=== PATIENT | female | born 1935 | race Caucasian/White ===

== ENCOUNTER 2017-01-30 13:42 | Inpatient (IN) ==
--- NOTE | 2017-01-30 14:33 | PROVIDER DOCUMENTATION ---
HPI-Abdominal Pain/GI Problem - General Chief Complaint: UTI Symptoms Stated Complaint: ABD PAIN, "STRONG" URINE SMELL Time Seen by Provider: 01/30/17 14:03 Source: patient Allergies/Adverse Reactions: Patient Allergies Allergy/AdvReac Type Severity Reaction Status Date / Time aspirin Allergy Intermediate SWELLING Verified 11/01/16 17:04 meperidine HCl * Allergy Intermediate RASH Verified 11/01/16 17:04 [From Demerol] morphine Allergy Intermediate HIVES Verified 11/01/16 17:04 Penicillins Allergy Intermediate HIVES Verified 11/01/16 17:04 Sulfa (Sulfonamide Allergy Intermediate HIVES Verified 11/01/16 17:04 Antibiotics) Iodinated Contrast Media - Allergy Mild NAUSEA/VOMI Verified 11/01/16 17:04 Oral and TING nalbuphine HCl * Allergy Mild RASH Verified 11/01/16 17:04 [From Nubain] famotidine [From Pepcid] Allergy Unknown Unknown Verified 11/01/16 17:04 streptomycin [Streptomycin] Allergy Unknown Unknown Verified 11/01/16 17:04 Home Medications: Home Medication List Medication Instructions Recorded Confirmed Last Taken Type Bisacodyl [Dulcolax] 10 mg VA PRN PRN 01/22/14 11/01/16 Unknown History Docusate Sodium [Colace] 100 mg PO BID 01/22/14 11/01/16 11/01/16 07:00 History Pantoprazole [Protonix] 40 mg PO DAILY@0700 01/22/14 11/01/16 11/01/16 07:00 History ATORVAstatin [Lipitor] 80 mg PO HS #1 tablet 02/02/14 11/01/16 10/31/16 20:00 Rx Dimethicone/Oxybenzone Commerce 0 gm TOP PRN PRN #1 stick 02/02/14 11/01/16 Unknown Rx [Blistex Medicated Swift Lip [place]] Ondansetron HCl [Zofran] 4 mg PO Q4H PRN PRN #1 tablet 02/02/14 11/01/16 Unknown Rx Potassium Chloride E.r. [Klor-Con] 40 meq PO DAILY #1 tablet 02/02/14 11/01/16 11/01/16 07:00 Rx Ranolazine E.r. [Ranexa] 500 mg PO BID #1 tablet 02/02/14 11/01/16 11/01/16 07: 00 Rx Acetaminophen 500 mg PO PRN PRN 02/17/14 11/01/16 Unknown History Digoxin 0.125 mcg PO DAILY 03/23/14 11/01/16 11/01/16 07:00 History Melatonin/Pyridoxine HCl (B6) 1 each PO QHS 03/23/14 11/01/16 10/31/16 20:00 History [Melatonin 10 mg Tablet] Prasugrel HCl [Effient] 5 mg PO DAILY 03/23/14 11/01/16 11/01/16 07:00 History Digoxin [Lanoxin] 125 microgm PO DAILY #0 tablet 11/05/16 Unknown Rx Oxycodone I.r. 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 She has been treated with Macrobid twice, amoxicillin and levaquin, states she is still having pain in the rlq. Pain is stabbing, intermittent, not associated with BM. She has been eating and drinking well over the past 2 weeks. Denies fevers, chills or weight loss. She is incontinent, but denies dysuria. She has a healthcare economics manager that lives with her, that denies and decrease mentally from her baseline Abdominal Pain Onset Location: reports: RLQ Pain Radiation: reports: no radiation Quality of Pain: reports: aching Severity in ED: reports: mild Onset/Duration: reports: other (2 months) Timing: reports: still present Review of Systems - Adult - REVIEW OF SYSTEMS - ADULT Constitutional: reports: no symptoms reported. denies: chills, fever, fatique Eyes: reports: no symptoms reported. denies: decreased vision, blurred vision, double vision, eye pain Ears, Nose, Mouth & Throat: reports: no symptoms reported. denies: ear pain, nose pain, throat pain Cardiovascular: reports: no symptoms reported. denies: chest pain, palpitations Respiratory: reports: no symptoms reported. denies: cough, shortness of breath , wheezing Gastrointestinal: reports: see HPI, abdominal pain, constipation, nausea. denies: diarrhea, poor appetite, vomiting Genitourinary: reports: no symptoms reported. denies: dysuria, discharge, frequency, flank pain, incontinence Musculoskeletal: reports: no symptoms reported. denies: bone pain, back pain, muscle aches Integumentary: reports: no symptoms reported. denies: rash Neurological: reports: no symptoms reported. denies: headache/migraines Psychiatric: reports: no symptoms reported Endocrine: reports: no symptoms reported Hematologic/Lymphatic: reports: no symptoms reported Allergic/Immunologic: reports: no symptoms reported All Other Systems: Reviewed and Negative Past History - Adult - PAST MEDICAL HISTORY-ADULT Review of Records: reports: Old Records Reviewed, Nursing Assessment Review, Medications Reviewed, Social history reviewed & non-contributory. Major Childhood Illnesses: reports: denies history Cardiovascular: reports: CAD, HTN Respiratory: reports: COPD Gastrointestinal: reports: denies history Obstetrical/Gynecological: reports: denies history Genitourinary: reports: denies history Musculoskeletal: reports: denies history Neurological: reports: dementia Endocrine/Immune: reports: denies history Other Conditions: reports: denies history - PRIOR SURGERIES/PROCEDURES Surgical/Procedure History: reports: appendectomy, colonoscopy, , orthopedic (extremity) (right hip) - IMMUNIZATION STATUS Childhood Immunizations: See Nurse Assessment Flu Vaccine: See Nurse Assessment - FAMILY HISTORY Family History: reviewed, not pertinent - SOCIAL HISTORY Smoking: quit greater than 1 year Substance Use: none/never Alcohol Use Frequency: never Physical Exam-General - PHYSICAL EXAM-ADULT Initial Vital Signs Reviewed: Yes - CONSTITUTIONAL General Appearance: appears well, alert, no apparent distress, thin - EYES Eyes: PERRL/EOMI, pink conjunctivae - HEAD, EARS, NOSE, MOUTH & THROAT HENMT: normocephalic/atraumatic, moist mucous membranes - NECK Neck: non-tender, full range of motion, supple, normal inspection - RESPIRATORY Respiratory: chest non-tender, lungs clear, normal breath sounds, no pleuratic chest pain, no respiratory distress, no accessory muscle use. negative: respiratory distress, decreased breath sounds, accessory muscle use, crackles, rales, rhonchi, wheezing - CARDIOVASCULAR Cardiovascular: normal peripheral pulses, regular rate, rhythm, no edema, no gallop, no JVD, no murmur - GASTROINTESTINAL (ABDOMEN) Abdominal Exam: normal bowel sounds, soft, no organomegaly, no pulsatile mass, tenderness (rlq). negative: abdominal bruit, abnormal bowel sounds, distended, guarding, rigid, rebound - MUSCULOSKELETAL Extremity: normal range of motion Peripheral Pulses: radial (R): 2+, radial (L): 2+, dorsalis-pedis (R): 2+, dorsalis-pedis (L): 2+ - SKIN Integumentary: normal color, normal turgor, warm/dry, other (PVD) - NEUROLOGIC Neurologic: grossly normal, no motor/sensory deficits - PSYCHIATRIC Psych/Mental Status: normal mood/affect, normal thought content, normal thought process, oriented x 3 Progress - PLAN OF CARE/RESULTS Progress/Plan/Lab Results: Vital Signs Temp Pulse Resp BP Pulse Ox 01/30/17 13:45 97.8 F 108 H 18 115/61 92 L aspirin Allergy (Intermediate, Verified 11/01/16 17:04) SWELLING meperidine HCl * [From Demerol] Allergy (Intermediate, Verified 11/01/16 17:04) RASH morphine Allergy (Intermediate, Verified 11/01/16 17:04) HIVES Penicillins Allergy (Intermediate, Verified 11/01/16 17:04) HIVES Sulfa (Sulfonamide Antibiotics) Allergy (Intermediate, Verified 11/01/16 17:04) HIVES Iodinated Contrast Media - Oral and Allergy (Mild, Verified 11/01/16 17:04) NAUSEA/VOMITING nalbuphine HCl * [From Nubain] Allergy (Mild, Verified 11/01/16 17:04) RASH famotidine [From Pepcid] Allergy (Unknown, Verified 11/01/16 17:04) Unknown streptomycin [Streptomycin] Allergy (Unknown, Verified 11/01/16 17:04) Unknown Bisacodyl [Dulcolax] 10 mg VA PRN PRN 01/22/14 Docusate Sodium [Colace] 100 mg PO BID 01/22/14 Pantoprazole [Protonix] 40 mg PO DAILY@0700 01/22/14 ATORVAstatin [Lipitor] 80 mg PO HS #1 tablet 02/02/14 Dimethicone/Oxybenzone Commerce [Blistex Medicated [place]] 0 gm TOP PRN PRN #1 stick 02/02/14 Ondansetron HCl [Zofran] 4 mg PO Q4H PRN PRN #1 tablet 02/02/14 Potassium Chloride E.r. [Klor-Con] 40 meq PO DAILY #1 tablet 02/02/14 Ranolazine E.r. [Ranexa] 500 mg PO BID #1 tablet 02/02/14 Acetaminophen 500 mg PO PRN PRN 02/17/14 Digoxin 0.125 mcg PO DAILY 03/23/14 Melatonin/Pyridoxine HCl (B6) [Melatonin 10 mg Tablet] 1 each PO QHS 03/23/14 Prasugrel HCl [Effient] 5 mg PO DAILY 03/23/14 Digoxin [Lanoxin] 125 microgm PO DAILY #0 tablet 11/05/16 Oxycodone I.r. [Oxy Ir] 10 mg PO Q4-6H PRN PRN #20 capsule 11/05/16 Dietary Diet NPO Start SatJan 30 1421 Laboratory 01/30/17 01/30/17 01/30/17 15:25 15:25 14:05 WBC 6.69 RBC 3.79 L Hgb 10.8 L Hct 37.6 MCV 99.2 H MCH 28.5 MCHC 28.7 L RDW Std Deviation 16.4 H Plt Count 157 MPV 11.5 H Immature Gran % (Auto) 0.1 Neut % (Auto) 72.4 Lymph % (Auto) 16.9 L [place] % (Auto) 7.0 Eos % (Auto) 3.0 Baso % (Auto) 0.6 Immature Gran # (Auto) 0.01 Neut # (Auto) 4.84 Lymph # (Auto) 1.13 L [place] # (Auto) 0.47 Eos # (Auto) 0.20 Baso # (Auto) 0.04 Sodium 140 Potassium 3.9 Chloride 104 Carbon Dioxide 28 Anion Gap 9 BUN 16 Creatinine 0.9 Estimated GFR/1.73 m2 60 BUN/Creatinine Ratio 18 Glucose 120 H Calculated Osmolality 282 Calcium 8.6 L Total Bilirubin 0.60 AST 11 ALT 10 Alkaline Phosphatase 83 Total Protein 5.3 L Albumin 3.2 L Globulin 2.0 Albumin/Globulin Ratio 2.0 Amylase 9 L Lipase 12 L Urine Source CLEAN CATCH Urine Color JOSS Urine Clarity VERY CLOUDY A Urine pH 6.5 Ur Specific [place] 1.020 Urine Protein 2+(100 mg/dL) A Urine Ketones 1+(Small) A Urine Blood 2+ A Urine Nitrite NEGATIVE Urine Bilirubin 1+ A Urine Urobilinogen 4+(12 mg/dL) Urine Microscopic RBC 20-40 A Urine WBC 2+ A Urine Microscopic WBC TNTC A Ur Epithelial Cells >10 A Urine Bacteria 4+ Urine Glucose NEGATIVE Orders Category Date Time Status Saline Loc DIRECTED Care 01/30/17 14:21 Active NPO Diet 01/30/17 14:21 Active FLAT/UPRIGHT ABD/1 VIEW CHEST [RAD] Stat Exams 01/30/17 14:22 Completed AMYLASE [CHEM] Stat Lab 01/30/17 15:25 Completed CBC WITH ELECTRONIC DIFF [HEME] Stat Lab 01/30/17 15:25 Completed COMPREHENSIVE METABOLIC PANEL [CHEM] Stat Lab 01/30/17 15:25 Completed LIPASE [CHEM] Stat Lab 01/30/17 15:[address] W/POSS RFLX CULT [URINALYSIS] Stat Lab 01/30/17 14:05 Completed URINE CULTURE [RM] Routine Lab 01/30/17 16:12 Ordered 0.9% Sodium Chloride Inj [Ns] 1,000 ml Med 01/30/17 16:06 Active IV 999 mls/hr CefTRIAXONE 1 GM/NS [Rocephin 1 gm/Ns] 50 ml Med 01/30/17 16:06 Active IV NOW Ondansetron Odt [Zofran Odt] Med 01/30/17 14:54 Discontinued 4 mg .ROUTE .STK-MED ONE Ondansetron Odt [Zofran Odt] Med 01/30/17 14:53 Discontinued 4 mg PO NOW ONE - XRAY 1 XRAY Study: Abdomen Impression: Normal (NAD per radiology) - CONSULTS/PCP/HOSPITALIST Notification #1 *Consult/PCP/Hospitalist*: Dr. Tsai, hospitalist Time Discussed: 17:48 Reason/Comments: failed outpatient therapy of UTI Consult Disposition: Admit Departure - Departure Time of Disposition Order: 16:19 DIAGNOSIS: Acute UTI Disposition: ADMITTED INPATIENT 09 Certified Medical Emergency: Emergent Condition: Stable Referrals: Ritu Henry [Primary Care Provider] - Instructions: Urinary Tract Infection, [id number], Cephalexin tablets or capsules Attestation - Physician/ VIK Attestation Patient care was provided by Advanced Practice Provider:: Yes Advanced Practice Provider:: Claudia Salazar Advanced Practice Provider documentation review:: The Mid-level provider documentation, treatment plan and medical decision making was reviewed by the physician who agrees with all treatment and medical decision making by the MLP.
[2017-01-30] MEDS ORDERED: ZOFRAN ODT PO ONE (14:53)
[2017-01-30] MEDS ORDERED: ZOFRAN ODT ONE (14:54)
--- NOTE | 2017-01-30 15:23 | Diag Imaging Result Document ---
PROCEDURE NAME: FLAT/UPRIGHT ABD/1 VIEW CHEST - 01/30/2017 FLAT AND UPRIGHT AND CHEST, THREE VIEWS: COMPARISON: The chest is compared to 11/01/2016. FINDINGS: The lungs are well expanded. The heart is mildly prominent. There are several old rib fractures. No free air beneath the diaphragm. Mild scoliosis with degenerative spine changes. No bowel obstruction. No organomegaly. No abnormal abdominal calcifications. There has been prior orthopaedic replacement of the right hip. Sutures are found in the pelvis. IMPRESSION: No acute abnormality.
[2017-01-30 15:36] LABS: MANUAL DIFF NEEDED? NO
[2017-01-30 15:56] LABS: BASO% 0.6 % (0.0-0.8); HEMATOCRIT 37.6 % (37.0-47.0); HEMOGLOBIN 10.8 g/dL (12.0-16.0); IMM GRAN# 0.01 X1000 (0.0-0.04); IMM GRAN% 0.1 % (0.0-0.5); LYMPH# 1.13 X1000 (1.2-3.4); LYMPH% 16.9 % (20.5-51.1); MCH 28.5 PG (27-31); MCHC 28.7 g/dL (33-37); MCV 99.2 FL (81-99); MONO# 0.47 X1000 (0.11-0.59); MPV 11.5 FL (7.4-10.4); NEUT% 72.4 % (42.2-75.2); PLT 157 X1000 (130-400); RBC 3.79 XMIL (4.2-5.4)
[2017-01-30 15:57] LABS: URINE SOURCE CLEAN CATCH
[2017-01-30 16:00] LABS: BILIRUBIN URINE 1+ (NEGATIVE); BLOOD URINE 2+ (NEGATIVE); CLARITY VERY CLOUDY (CLEAR); COLOR AMBER; GLUCOSE URINE NEGATIVE (NEGATIVE); LEUKOCYTES URINE 2+ (NEGATIVE); NITRITE URINE NEGATIVE (NEGATIVE); PH URINE 6.5; PROTEIN URINE 2+(100 mg/dL) mg/dL (NEGATIVE); UROBILINOGEN URINE 4+(12 mg/dL)
[2017-01-30] MEDS ORDERED: NS 1,000 ML IV ONE (16:06)
[2017-01-30] MEDS ORDERED: ROCEPHIN 1 GM/NS 50 ML IV ONE (16:06)
[2017-01-30 16:09] LABS: ALBUMIN 3.2 g/dL (3.5-5.0); CALCIUM 8.6 mg/dL (8.8-10.2); POTASSIUM 3.9 mmol/L (3.5-5.1); TOTAL BILIRUBIN 0.6 mg/dL (0.20-1.00); TOTAL PROTEIN 5.3 g/dL (6.3-8.3)
[2017-01-30 16:12] LABS: URINE CULTURE PL NEEDED? YES; URINE EPITHELIAL CELLS >10 /HPF (<10); URINE RBC 20-40 /HPF (<10); URINE WBC TNTC /HPF (<10)
[2017-01-30] MEDS ORDERED: ZOFRAN IV PRN (20:20)
[2017-01-30] MEDS ORDERED: TYLENOL PO PRN (20:20)
[2017-01-30] MEDS: LIPITOR PO SCH (21:48)
[2017-01-30] MEDS: NS 1,000 ML IV SCH (22:19)
[2017-01-31] MEDS: PROTONIX PO SCH (06:16)
[2017-01-31 06:28] LABS: HEMATOCRIT 37.6 % (37.0-47.0); HEMOGLOBIN 10.6 g/dL (12.0-16.0); MCH 28.2 PG (27-31); MCHC 28.2 g/dL (33-37); MPV 12.1 FL (7.4-10.4); RBC 3.76 XMIL (4.2-5.4)
[2017-01-31 06:37] LABS: ALBUMIN 2.9 g/dL (3.5-5.0); CALCIUM 8.8 mg/dL (8.8-10.2); MAGNESIUM 2.5 mg/dL (1.5-2.7); POTASSIUM 5.3 mmol/L (3.5-5.1); TOTAL BILIRUBIN 0.3 mg/dL (0.20-1.00); TOTAL PROTEIN 4.8 g/dL (6.3-8.3)
[2017-01-31] MEDS: PLAVIX PO SCH (08:27)
[2017-01-31] MEDS: IMDUR PO SCH (08:27)
[2017-01-31] MEDS: TAPAZOLE PO SCH (08:27)
[2017-01-31] MEDS: BYSTOLIC PO SCH (08:28)
--- NOTE | 2017-01-31 08:39 | PROGRESS NOTE ---
DATE: 01/31/2017 SUBJECTIVE: The patient without any new complaints. She is still not drinking well. Still tired and fatigued. OBJECTIVE: Vital Signs: Reviewed. Temperature 97.8, pulse 84, respiratory rate 10, BP 137/51. General: Patient well developed, well nourished. She is currently in no real respiratory distress. She is awake, alert, oriented. Neck: Supple. CV: Regular rate. Chest: Relatively clear. Abdomen: Soft, nondistended. Extremities: Moves all extremities. Skin: Warm and dry. No rashes. ASSESSMENT: 1. Mild volume depletion. 2. Hyperkalemia. 3. Hypernatremia. 4. Moderate protein calorie malnutrition. 5. Recalcitrant urinary tract infection. The patient has had multiple urinary infections in the past. They have been difficult to treat. However, we do not have a culture here as the last one in October was no growth. PLAN: We will continue patient in the hospital. Continue Rocephin. Continue IV fluids. We will put in a PICC line today. Will continue her home medications. Further orders as needed.
[2017-01-31] MEDS ORDERED: NS 500 ML ONE (10:53)
[2017-01-31] MEDS: NORCO-7.5 PO PRN (10:54)
[2017-01-31 11:28] LABS: PROTIME 13.5 Seconds (12.1-15.5)
[2017-01-31] MEDS: NS 1,000 ML IV SCH (13:30)
--- NOTE | 2017-01-31 14:52 | Diag Imaging Result Document ---
PROCEDURE NAME: US RENAL 2 (RETROPER) COMPLETE - 01/31/2017 RENAL ULTRASOUND: COMPARISON: 01/23/2014, 01/22/2014. FINDINGS: There is incidental note of gallbladder wall thickening which is identical to the prior scan from 2013. There is some cortical atrophy bilaterally with renal cortical thinning. No mass or obstruction. Background renal echotexture is normal. The right kidney measures 8.6 x 4.9 x 3.3 cm. The left kidney measures 9.8 x 3.5 x 3.9 cm. Cortex measures 6 mm bilaterally. The urinary bladder is grossly normal. IMPRESSION: 1. Renal cortical atrophy bilaterally but no obstruction. 2. Chronic gallbladder wall thickening of uncertain significance.
--- NOTE | 2017-01-31 14:59 | HISTORY AND PHYSICAL ---
PRIMARY CARE PHYSICIAN: Dr. Ritu Henry CHIEF COMPLAINT: Abdominal pain in the right lower quadrant. HISTORY OF PRESENTING ILLNESS: This is a 81-year-old female who presented to [facility] ER with complaints of right lower quadrant abdominal pain. States she has been having recurrent UTIs over the past month had been treated with Macrobid twice, amoxicillin and Levaquin. Continued to still have pain in her right lower quadrant. She described the pain as stabbing and intermittent, it was not associated with a bowel movement. States she had been eating and drinking over the past 2 weeks and having incontinent episodes. She denied any dysuria. Workup in the ER showed a urinalysis to have negative nitrites, 2+ white blood cells, 4+ bacteria. So, she was admitted for further evaluation and treatment. PAST MEDICAL HISTORY: COPD, dementia and hypertension. PAST SURGICAL HISTORY: Appendectomy, a breast biopsy, cholecystectomy, cataract removal, hysterectomy, a hip replacement and a bilateral tubal ligation. FAMILY HISTORY: Her dad had cancer. SOCIAL HISTORY: She lives with family. Denies any tobacco, alcohol, or illicit drug use. She was a former smoker but quit approximately 3 years ago. ALLERGIES: Aspirin, Demerol, morphine penicillin, sulfa, Nubain, iodinated contrast media, Pepcid and streptomycin. HOME MEDICATIONS: 1. Klor-Con 40 mEq p.o. daily. 2. Lipitor 40 mg p.o. at bedtime. 3. Plavix 75 mg p.o. daily. 4. Benadryl 25 mg p.o. q.4-6 hours p.r.n. 5. Colace 100 mg p.o. q.6 hours p.r.n. 6. Vitamin D2 07810 units. 7. [place] 7.5, 1-2 p.o. q.6 hours p.r.n. pain. 8. Imdur 60 mg p.o. daily. 9. Methimazole 5 mg p.o. daily. 10. Bystolic 5 mg p.o. daily. 11. OxyIR 10 mg p.o. q.4-6 hours p.r.n. 12. Protonix 40 mg p.o. daily. LABORATORY DATA: White blood cell count 6.69, hemoglobin of 10.8, hematocrit 37.6, platelets 157,000. PT and INR of 13.5 and 1.0. Sodium of 140, potassium 3.9, chloride 104, CO2 28, BUN of 16, creatinine of 0.9, glucose of 120, amylase of 9, lipase of 12. Urinalysis showed negative nitrites, 2+ white blood cells, and 4+ bacteria. Urine culture is pending. Abdominal x-ray showed no acute abnormality. REVIEW OF SYSTEMS: She denied any fever, chills, blurred vision, dizziness, chest pain, coughing, shortness of breath. She was positive for nausea. Right lower quadrant abdominal pain that is intermittent, incontinence. PHYSICAL EXAMINATION: VITAL SIGNS: On arrival showed a temperature of 97.8 degrees, pulse 108, respirations 18, blood pressure 115/61, saturating 92% on room air. GENERAL: This is a 81-year-old female lying in the bed. HEENT: Normocephalic and atraumatic. Pupils are equal, round, reactive to light. Extraocular movements are intact. The oropharynx and nares are clear. NECK: Supple. LUNGS: Diminished breath sounds in bases with crackles. Equal lung expansion and chest wall movement. HEART: With regular rate and rhythm. No murmurs, rubs, or gallops. ABDOMEN: Soft, nontender, nondistended. Bowel sounds are present x4 quadrants. EXTREMITIES: There is no clubbing, cyanosis, or edema. NEUROLOGICAL: The cranial nerves 2-12 are grossly intact. ASSESSMENT: 1. Urinary tract infection recurrent with failed outpatient treatment. 2. Mild protein calorie malnutrition. 3. Hypertension, history of. PLAN: She is being admitted to the medical unit at [facility]. Placed on telemetry. Regular diet. We will obtain a PICC consult. We are having difficulty obtaining a peripheral line. Urine culture is pending. We will obtain an ultrasound, renal today. Once IV is established, we will place her on normal saline at 75 mL an hour. Continue her Rocephin at 1 gram IV q.24, and continue her home medications as previously identified. We will recheck a CBC and BMP in a.m. Dictated by ARABELLA Torres for Dick Tsai MD
[2017-01-31] MEDS: ROCEPHIN 1 GM/NS 50 ML IV SCH (15:39)
[2017-01-31] MEDS: LIPITOR PO SCH (20:12)
[2017-02-01] MEDS: NS 1,000 ML IV SCH ×2 (00:23→13:22)
[2017-02-01] MEDS: NORCO-7.5 PO PRN ×2 (03:42→11:18)
[2017-02-01] MEDS: PROTONIX PO SCH (06:01)
[2017-02-01] MEDS: OXY IR PO PRN (06:01)
--- NOTE | 2017-02-01 08:29 | PROGRESS NOTE ---
DATE: 02/01/2017 SUBJECTIVE: Patient without new complaints. States she is eating and drinking okay. OBJECTIVE/PHYSICAL EXAMINATION: Vital signs reviewed. Temp 97, pulse of 96, respirations 16, BP 126/89, sat 99% on room air. General: The patient is a well-developed elderly female who is currently in no real respiratory distress. She is awake, alert. Neck: Supple. CV: Regular rate. Chest: Relatively clear. Abdomen: Soft. Extremities: Moves all extremities. LABS: No new labs this a.m. Currently pending. Urine culture growing gram-negative rods. ASSESSMENT: 1. Urinary tract infection with gram-negative rods. Micro still pending. 2. Anemia of chronic disease, stable. 3. Hypernatremia. 4. Hyperkalemia. Will recheck and follow. 5. Moderate protein calorie malnutrition. PLAN: The patient, unfortunately, was unable to get a PICC line yesterday. Will recheck her labs this a.m. She they be normal, then she may not need a PICC line. Will continue Rocephin and continue to follow.
[2017-02-01 08:49] LABS: HEMATOCRIT 37.8 % (37.0-47.0); HEMOGLOBIN 10.8 g/dL (12.0-16.0); MCH 29.3 PG (27-31); MCHC 28.6 g/dL (33-37); MCV 102.4 FL (81-99); MPV 11.8 FL (7.4-10.4); RBC 3.69 XMIL (4.2-5.4)
[2017-02-01] MEDS ORDERED: KLOR-CON PO SCH (09:00)
[2017-02-01] MEDS ORDERED: VITAMIN D PO SCH (09:00)
[2017-02-01 09:10] LABS: AGAP 8; ALBUMIN 2.6 g/dL (3.5-5.0); ALKALINE PHOSPHATASE 70 U/L (32-104); BUN 12 mg/dL (8-22); CHLORIDE 110 mmol/L (98-107); COSMO 281; GOT 8 U/L (10-30); GPT 8 U/L (10-36); SODIUM 141 mmol/L (136-145); TCO2 23 mmol/L (25-35); TOTAL PROTEIN 4.6 g/dL (6.3-8.3)
[2017-02-01] MEDS: BYSTOLIC PO SCH (09:16)
[2017-02-01] MEDS: PLAVIX PO SCH (09:16)
[2017-02-01] MEDS: TAPAZOLE PO SCH (09:16)
[2017-02-01] MEDS: IMDUR PO SCH (09:17)
[2017-02-01] MEDS: BENADRYL PO PRN (11:19)
[2017-02-01] MEDS: ROCEPHIN 1 GM/NS 50 ML IV SCH (15:12)
[2017-02-01] MEDS: LIPITOR PO SCH (20:55)
[2017-02-02] MEDS: NS 1,000 ML IV SCH ×3 (03:50→22:49)
[2017-02-02] MEDS: PROTONIX PO SCH (06:30)
[2017-02-02] MEDS: BENADRYL PO PRN ×2 (08:08→23:41)
[2017-02-02] MEDS: BYSTOLIC PO SCH (08:08)
[2017-02-02] MEDS: TAPAZOLE PO SCH (08:09)
[2017-02-02] MEDS: IMDUR PO SCH (08:09)
[2017-02-02] MEDS: PLAVIX PO SCH (08:09)
--- NOTE | 2017-02-02 09:37 | EKG Report ---
Test Performed on : 02/02/2017 08:14:39 AM Test Reason : Tachycardia Blood Pressure : / mmHG Vent. Rate : 132 BPM Atrial Rate : 170 BPM P-R Int : 000 ms QRS Dur : 080 ms QT Int : 288 ms P-R-T Axes : 000 000 066 degrees QTc Int : 426 ms Atrial fibrillation. with rapid ventricular response. Abnormal ECG When compared with ECG of 03-NOV-2016 10:21, Vent. rate has increased BY 64 BPM Nonspecific T wave abnormality now evident in Lateral leads Confirmed by Kenneth King MD ([id number]) on 02/12/2017 1:29:24 AM
[2017-02-02] MEDS ORDERED: CARDIZEM 100 MG/NS 100 ML IV SCH (10:20)
[2017-02-02] MEDS ORDERED: GENTAMICIN IV PER PHARMACY MISC SCH (12:00)
[2017-02-02] MEDS ORDERED: GENTAMICIN 300 MG in NS 150 ML IV SCH (13:00)
[2017-02-02] MEDS: OXY IR PO PRN ×2 (13:06→19:55)
--- NOTE | 2017-02-02 14:33 | PROGRESS NOTE ---
DATE: 02/02/2017 SUBJECTIVE: The patient is currently awake and alert. She states that she is feeling a little bit better. She did have some issues yesterday and this morning with palpitations. Otherwise notes that she is feeling a little bit better. She denies any current, palpitations. States otherwise she feels fine. OBJECTIVE: Vital Signs: Temperature 97 degrees, pulse currently 89, but has been as high as 130s. BP 118/95. Saturations 94% on room air. General: Patient is well developed, well nourished. She is currently in no real respiratory distress. She is awake, alert. Neck: Supple. Cardiovascular: Irregular rhythm, currently rate controlled. Abdomen: Soft. Extremities: Moves extremities. Chest: Relatively clear. ASSESSMENT: 1. Urinary tract infection with failed outpatient management. We will add imipenem. We will wait for her cultures. She unfortunately is allergic to sulfa and penicillin. She currently has an Escherichia coli that is sensitive to imipenem and Bactrim. We will discuss with pharmacy, likely add gentamicin. 2. Atrial fibrillation. She apparently went into atrial fibrillation with rapid ventricular response earlier this morning. We moved her back to the ICU. She has not received IV Cardizem yet. Her heart rate is slowing down. 3. Hypertension. 4. Adult failure to thrive. Continue to follow.
[2017-02-02] MEDS: ROCEPHIN 1 GM/NS 50 ML IV SCH (17:42)
[2017-02-02] MEDS: LIPITOR PO SCH (20:57)
[2017-02-03] MEDS: OXY IR PO PRN ×2 (00:10→16:26)
[2017-02-03] MEDS: PROTONIX PO SCH (06:27)
[2017-02-03] MEDS: PLAVIX PO SCH (08:41)
[2017-02-03] MEDS: BYSTOLIC PO SCH (08:41)
[2017-02-03] MEDS: IMDUR PO SCH (08:41)
[2017-02-03] MEDS: TAPAZOLE PO SCH (09:14)
[2017-02-03] MEDS ORDERED: ROCEPHIN 1 GM/NS 50 ML MISC SCH (11:00)
--- NOTE | 2017-02-03 11:12 | PROGRESS NOTE ---
DATE: 02/03/2017 SUBJECTIVE: Patient notes that she is feeling a little bit better. She is not having any chest pains or palpitations presently. PHYSICAL EXAMINATION: Vital Signs: Reviewed and stable. General: She is awake, alert. Neck: Supple. CV: Regular rate. Chest: Relatively clear. Abdomen: Soft. Extremities: Moves all extremities. Neurologic: No changes. Vitals: Temperature 97, pulse 84, respiratory rate 10, BP 170/64. ASSESSMENT: 1. Atrial fibrillation. Currently, she is rate controlled and no longer with rapid rate. She has not needed Cardizem overnight. 2. Urinary tract infection. She has an Escherichia coli that is resistant to Levaquin. Sensitive to Bactrim, Macrodantin, and imipenem. Unfortunately, she is allergic to penicillin, streptomycin, and Bactrim. Her intravenous has infiltrated and we are having difficulty restarting it. At this point, we will try a Macrobid to see if this will control her urinary tract infection symptoms. Otherwise, we will need a peripherally inserted central catheter line in the morning. 3. Hypertension, stable. 4. Anemia of chronic disease, stable. 5. Hyperkalemia, resolved. 6. Hypernatremia, resolved. 7. Moderate protein calorie malnutrition.
[2017-02-03] MEDS: MACRODANTIN PO SCH ×2 (11:19→20:10)
[2017-02-03] MEDS: NORCO-7.5 PO PRN ×2 (14:37→20:09)
[2017-02-03] MEDS: ROCEPHIN IM SCH (16:22)
[2017-02-03] MEDS: XYLOCAINE-MPF 1% INJ SCH (16:22)
[2017-02-03] MEDS: LIPITOR PO SCH (20:10)
[2017-02-04] MEDS ORDERED: GENTAMICIN 300 MG in NS 150 ML IV SCH (01:00)
[2017-02-04] MEDS: NORCO-7.5 PO PRN ×2 (05:46→20:45)
[2017-02-04] MEDS: PROTONIX PO SCH ×2 (05:46→06:00)
--- NOTE | 2017-02-04 08:17 | PROGRESS NOTE ---
DATE: 02/04/2017 SUBJECTIVE: The patient notes she is feeling a little bit better this morning. Denies any fevers or chills. Denies any other chest pain or palpitations. PHYSICAL EXAMINATION: Vital Signs: Temperature 97, pulse 91, respiratory rate 18, BP 115/64. General: Patient is well developed, well nourished. She is currently in no respiratory distress. She is an awake, alert, elderly female. Neck: Supple. CV: Regular rate. Chest: Relatively clear. Abdomen: Soft. Extremities: Moves all extremities. Neurologic: No changes. LABS: Pending this morning. ASSESSMENT: 1. Urinary tract infection. The patient has an Escherichia coli urinary tract infection that is resistant to Levaquin. It is sensitive to Bactrim and imipenem. However, she has high sensitivities to sulfa, penicillin, and streptomycin. Therefore, she was changed over to oral nitrofurantoin. We will continue Rocephin for now, although unsure if has sensitivity as this was not run. 2. Atrial fibrillation with rapid ventricular response, currently back to rate control. 3. Mild protein calorie malnutrition. 4. Hypertension. 5. Hyperkalemia. 6. Hypernatremia, resolved. PLAN: We will continue nitrofurantoin and Bactrim for now. We will continue to encourage p.o. for her moderate protein calorie malnutrition. We will continue physical therapy. Hopefully home in the next 1-2 days.
[2017-02-04] MEDS: MACRODANTIN PO SCH ×2 (09:13→20:08)
[2017-02-04] MEDS: BYSTOLIC PO SCH (09:13)
[2017-02-04] MEDS: PLAVIX PO SCH (09:13)
[2017-02-04] MEDS: IMDUR PO SCH (09:13)
[2017-02-04] MEDS: TAPAZOLE PO SCH (09:14)
[2017-02-04 10:44] LABS: HEMATOCRIT 34.8 % (37.0-47.0); HEMOGLOBIN 10.1 g/dL (12.0-16.0); MCH 29.4 PG (27-31); MCV 101.5 FL (81-99); MPV 12.2 FL (7.4-10.4); RBC 3.43 XMIL (4.2-5.4)
[2017-02-04 10:48] LABS: INR 1.1 (0.86-1.15); PROTIME 14.5 Seconds (12.1-15.5)
[2017-02-04 10:58] LABS: AGAP 7; ALBUMIN 2.5 g/dL (3.5-5.0); ALKALINE PHOSPHATASE 73 U/L (32-104); BUN 13 mg/dL (8-22); CALCIUM 8.8 mg/dL (8.8-10.2); CHLORIDE 105 mmol/L (98-107); COSMO 278; GOT 11 U/L (10-30); GPT 8 U/L (10-36); MAGNESIUM 1.9 mg/dL (1.5-2.7); POTASSIUM 4.3 mmol/L (3.5-5.1); SODIUM 139 mmol/L (136-145); TCO2 28 mmol/L (25-35); TOTAL PROTEIN 4.9 g/dL (6.3-8.3)
[2017-02-04] MEDS: XYLOCAINE-MPF 1% INJ SCH (15:41)
[2017-02-04] MEDS: ROCEPHIN IM SCH (15:41)
[2017-02-04] MEDS: LIPITOR PO SCH (20:08)
[2017-02-04] MEDS: COLACE PO PRN (20:46)
[2017-02-05] MEDS ORDERED: CALMOSEPTINE OINTMENT TOP PRN (01:12)
[2017-02-05] MEDS: NORCO-7.5 PO PRN ×2 (03:20→10:03)
[2017-02-05] MEDS: COLACE PO PRN (03:20)
[2017-02-05] MEDS: PROTONIX PO SCH (06:49)
[2017-02-05] MEDS: BYSTOLIC PO SCH (08:25)
[2017-02-05] MEDS: PLAVIX PO SCH (08:25)
[2017-02-05] MEDS: MACRODANTIN PO SCH (08:25)
[2017-02-05] MEDS: TAPAZOLE PO SCH (08:25)
[2017-02-05] MEDS: IMDUR PO SCH (08:25)
[2017-02-05 11:36] VITALS: BP 117/76
--- NOTE | 2017-02-16 14:19 | DISCHARGE SUMMARY ---
ADMISSION DATE: 01/30/2017 DISCHARGE DATE: 02/05/2017 DISCHARGE DIAGNOSIS: 1. Urinary tract infection, Escherichia coli, resistant to Levaquin but sensitive to Bactrim. 2. Atrial fibrillation with rapid ventricular response. Rate controlled currently. 3. Mild protein calorie malnutrition. 4. Hypertension. 5. Hypokalemia. 6. Hypernatremia, resolved. CONSULTATIONS: None. PROCEDURES: None. BRIEF HOSPITAL COURSE: Ms Orlando is a 81-year-old female who was admitted as noted on the HPI, treated in usual fashion. She was noted to have initially atrial fibrillation with RVR but this easily resolved. She was converted over to p.o. medications without any difficulty. Unfortunately, her hospital course was prolonged secondary to her chronic dementia. She was placed on antibiotics. Her UTI that grew out E. coli that was resistant to Levaquin and therefore she was switched over to Bactrim, which she tolerated very well. On discharge she was awake, alert. She was in no distress. She will be discharged home. She will follow up outpatient with primary care of her choice in 1-2 weeks. She will continue home health at home. No other changes made in her home medications. TIME SPENT: 35 minutes was spent in discharge planning and instructions. cc: Dick Tsai MD
== END 2017-02-05 15:00 | disposition home health service (06) ==
LOC: P.ED 13:42 → P.MEDSURG 18:05 → P.ICU 02-02 10:16 → P.MEDSURG 02-03 12:27
PROVIDERS: ATTEND Family Medicine

== ENCOUNTER 2017-02-17 15:20 | Inpatient (IN) ==
[2017-02-17] MEDS ORDERED: CARDIZEM IV ONE (15:59)
[2017-02-17 16:38] LABS: MANUAL DIFF NEEDED? NO
[2017-02-17 16:41] LABS: BASO% 0.1 % (0.0-0.8); EOS# 0.06 X1000 (0.0-0.7); EOS% 0.7 % (0.0-10.0); HEMATOCRIT 44.7 % (37.0-47.0); HEMOGLOBIN 13.2 g/dL (12.0-16.0); IMM GRAN# 0.03 X1000 (0.0-0.04); IMM GRAN% 0.4 % (0.0-0.5); LYMPH% 11.9 % (20.5-51.1); MCH 29.8 PG (27-31); MCHC 29.5 g/dL (33-37); MCV 100.9 FL (81-99); MONO# 0.67 X1000 (0.11-0.59); MONO% 7.9 % (1.7-9.3); MPV 11.9 FL (7.4-10.4); PLT 211 X1000 (130-400); RBC 4.43 XMIL (4.2-5.4)
[2017-02-17 17:01] LABS: ALBUMIN 3.2 g/dL (3.5-5.0); CALCIUM 9.5 mg/dL (8.8-10.2); POTASSIUM 4.2 mmol/L (3.5-5.1); TOTAL BILIRUBIN 0.56 mg/dL (0.20-1.00)
--- NOTE | 2017-02-17 17:13 | Diag Imaging Result Document ---
PROCEDURE NAME: CHEST-2 VIEWS - 02/17/2017 TWO-VIEWS OF THE CHEST: FINDINGS: There is blunting of the costophrenic angles posteriorly bilaterally and there is opacity posteriorly in both lower lobes. This was not the case on 01/30/2017. IMPRESSION: Bilateral pleural effusions and lower lobe pneumonia versus pulmonary edema.
[2017-02-17] MEDS ORDERED: ROCEPHIN 1 GM/NS 1 GM/50 ML IVPB IV ONE (17:39)
--- NOTE | 2017-02-17 17:40 | PROVIDER DOCUMENTATION ---
This chart was entered by Gita Hester Scribe, acting as scribe for Sky Norris MD. HPI-General Adult - General Chief Complaint: Weakness Stated Complaint: GENERALIZED WEAKNESS Time Seen by Provider: 02/17/17 15:38 Source: patient Allergies/Adverse Reactions: Patient Allergies Allergy/AdvReac Type Severity Reaction Status Date / Time aspirin Allergy Intermediate SWELLING Verified 11/01/16 17:04 meperidine HCl * Allergy Intermediate RASH Verified 11/01/16 17:04 [From Demerol] morphine Allergy Intermediate HIVES Verified 11/01/16 17:04 Penicillins Allergy Intermediate HIVES Verified 11/01/16 17:04 Sulfa (Sulfonamide Allergy Intermediate HIVES Verified 11/01/16 17:04 Antibiotics) Iodinated Contrast Media - Allergy Mild NAUSEA/VOMI Verified 11/01/16 17:04 Oral and TING nalbuphine HCl * Allergy Mild RASH Verified 11/01/16 17:04 [From Nubain] famotidine [From Pepcid] Allergy Unknown Unknown Verified 11/01/16 17:04 streptomycin [Streptomycin] Allergy Unknown Unknown Verified 11/01/16 17:04 Home Medications: Home Medication List Medication Instructions Recorded Confirmed Last Taken Type Pantoprazole [Protonix] 40 mg PO DAILY@0700 01/22/14 01/30/17 11/01/16 07:00 History Potassium Chloride E.r. [Klor-Con] 40 meq PO DAILY #1 tablet 02/02/14 01/30/17 11/01/16 07:00 Rx Acetaminophen 500 mg PO PRN PRN 02/17/14 01/30/17 Unknown History Oxycodone I.r. [Oxy Ir] 10 mg PO Q4-6H PRN PRN #20 capsule 11/05/16 01/30/17 Unknown Rx ATORVAstatin [Lipitor] 40 mg PO HS 01/30/17 01/30/17 Unknown History Clopidogrel Bisulfate [Plavix] 75 mg PO DAILY 01/30/17 01/30/17 Unknown History Cranberry Fruit Concentrate [Azo 2 cap PO DAILY 01/30/17 01/30/17 Unknown History Cranberry] Diphenhydramine HCl [Benadryl 25 mg PO Q4-6H PRN PRN 01/30/17 01/30/17 Unknown History Allergy] Docusate Sodium [Monique' 1 cap PO Q6H PRN PRN 01/30/17 01/30/17 Unknown History Laxative] Ergocalciferol (Vitamin D2) 1 cap PO ONCE 01/30/17 01/30/17 Unknown History [Vitamin D] Hydrocodone/Acetaminophen [[place]send 1 - 2 tab PO Q6H PRN PRN 01/30/17 01/30/17 Unknown History 7.5-325 Tablet] Isosorbide Mononitrate E.r. [Imdur] 60 mg PO DAILY 01/30/17 01/30/17 Unknown History Methimazole 5 mg PO DAILY 01/30/17 01/30/17 Unknown History Nebivolol [Bystolic] 5 mg PO DAILY 01/30/17 01/30/17 Unknown History Dimethicone/Oxybenzone [place] 1 gm TOP PRN PRN 02/01/17 02/01/17 Unknown History [Blistex Medicated Swift [place]] Nitrofurantoin Macrocrystal 100 mg PO Q12HR #40 capsule 02/05/17 Unknown Rx [Macrodantin] - History of Present Illness -Gen Adult Nature of Presenting Problems: 81 yof presents with complaints of weakness.Family states pt had broken hip/ femur nonsurgical repair about 2 months ago. Pt was in rehab for 3 weeks and returned home. Since discharge from rehab pt has frequent UTI's. Pt has had more increased weakness with a cough and family states her lungs sounded bad. She has mild dementia but no increased AMS. Noted increased HR in the ER. Location of Pain/Injury: reports: generalized Pain Radiation: reports: no radiation Quality of Pain: reports: aching Severity: reports: mild Onset/Duration: reports: this morning Timing: reports: still present Context/Activities at Onset: reports: none Modifying Factors: improves with: nothing Associated Symptoms: reports: cough, weakness Similar Symptoms Previously?: No Recently seen or treated by another doctor?: No Review of Systems - Adult - REVIEW OF SYSTEMS - ADULT Constitutional: reports: susy. denies: chills, fever Eyes: reports: no symptoms reported Ears, Nose, Mouth & Throat: reports: no symptoms reported Cardiovascular: reports: irregular heart rate (increased). denies: chest pain, palpitations Respiratory: reports: cough, wheezing. denies: shortness of breath Gastrointestinal: reports: no symptoms reported Genitourinary: reports: no symptoms reported Musculoskeletal: reports: muscle weakness, other (hip). denies: back pain Integumentary: reports: no symptoms reported Neurological: reports: no symptoms reported Psychiatric: reports: no symptoms reported Endocrine: reports: no symptoms reported Hematologic/Lymphatic: reports: no symptoms reported Allergic/Immunologic: reports: no symptoms reported All Other Systems: Reviewed and Negative Past History - Adult - PAST MEDICAL HISTORY-ADULT Review of Records: reports: Old Records Reviewed, Nursing Assessment Review, Medications Reviewed Cardiovascular: reports: A-Fib, CAD, CHF, HTN Respiratory: reports: COPD Musculoskeletal: reports: orthopedic injury Neurological: reports: dementia Other Conditions: reports: cataract/glaucoma - PRIOR SURGERIES/PROCEDURES Surgical/Procedure History: reports: appendectomy, colonoscopy, cholecystectomy , cardiac stent, hysterectomy, BTL, , bowel surgery (partial colectony) , orthopedic (extremity) (bilateral hip), joint replacement (right hip), breast (biopsy), other (cataract) - IMMUNIZATION STATUS Childhood Immunizations: See Nurse Assessment Flu Vaccine: See Nurse Assessment - SOCIAL HISTORY Smoking: quit less than 1 year Living Situation: family Physical Exam-General - PHYSICAL EXAM-ADULT Initial Vital Signs Reviewed: Yes - CONSTITUTIONAL General Appearance: appears well, alert, no apparent distress - EYES Eyes: PERRL/EOMI, pink conjunctivae, sunken eyes - HEAD, EARS, NOSE, MOUTH & THROAT HENMT: normocephalic/atraumatic, dental decay, other (tackyMM's) - NECK Neck: non-tender, full range of motion, supple - RESPIRATORY Respiratory: chest non-tender, lungs clear, normal breath sounds. negative: rales, rhonchi, wheezing - CARDIOVASCULAR Cardiovascular: normal peripheral pulses, no edema, tachycardia, irregularly irregular - GASTROINTESTINAL (ABDOMEN) Abdominal Exam: non tender, soft, no organomegaly - LYMPHATIC Lymphatic: no adenopathy. negative: enlargement - MUSCULOSKELETAL Back Exam: normal inspection, no CVA tenderness, no vertebral tenderness Extremity: normal range of motion, no calf tenderness, tenderness (right hip/ proximal femur) - SKIN Integumentary: normal color, warm/dry, other (poor turgor) - NEUROLOGIC Neurologic: grossly normal. negative: focal weakness, motor weakness - PSYCHIATRIC Psych/Mental Status: normal mood/affect, disoriented x 3 (to time), disheveled Progress - PLAN OF CARE/RESULTS Progress/Plan/Lab Results: Vital Signs - 8 hr 02/17/17 15:28 Temperature 97.9 F Pulse Rate 107 H Respiratory Rate 25 H Blood Pressure 113/98 O2 Sat by Pulse Oximetry 95 Result Diagrams: 02/17/17 16:09 02/17/17 16:09 - EKG 1 Rate: 116 Rhythm: AFib with RVR [place]: normal QRS: normal ST Wave: non-specific ST changes - XRAY 1 XRAY Study: Chest Impression: Abnormal XRAY Interpretation: CMG with RLL infiltrate - CONSULTS/PCP/HOSPITALIST Notification #1 *Consult/PCP/Hospitalist*: Hospitalist Time Discussed: 17:04 Consult Disposition: Will see in ED, Admit Departure - Departure Time of Disposition Decision: 17:15 DIAGNOSIS: Atrial fibrillation with rapid ventricular response RLL pneumonia Qualifiers: Pneumonia type: due to unspecified organism Qualified Code(s): J18.1 - Lobar pneumonia, unspecified organism Disposition: ADMITTED INPATIENT 09 Certified Medical Emergency: Emergent Condition: Stable - Critical Care Note Total Time (mins): 30 Critical Care Statement: This patient required my direct personal management to treat or rule out processes, the absence of which, could potentiallly result in sudden, clinically significant life or limb threatening deterioration. This chart was documented by the indicated scribe, (Gita Hester Scribe) and accurately reflects the services I performed and decisions made by me, Sky Norris MD, as attested by the provider's signature.
[2017-02-17 18:14] LABS: URINE MICRO REVIEW NEEDED? NO; URINE SOURCE CATH
[2017-02-17 18:27] LABS: BILIRUBIN URINE SMALL (NEGATIVE); BLOOD URINE SMALL (NEGATIVE); COLOR YELLOW; GLUCOSE URINE NEGATIVE (NEGATIVE); LEUKOCYTES URINE NEGATIVE (NEGATIVE); NITRITE URINE NEGATIVE (NEGATIVE); PROTEIN URINE 50 mg/dL (NEGATIVE); SP GRAVITY URINE 1.026; TURBIDITY URINE CLEAR (CLEAR); UROBILINOGEN URINE 2 mg/dL (NORMAL)
[2017-02-17 18:28] LABS: UR EPITHELIAL CELLS <10 /HPF (<10); URINE BACTERIA NEGATIVE /HPF; URINE RBC <10 /HPF (<10); URINE WBC <10 /HPF (<10)
--- NOTE | 2017-02-17 19:50 | HISTORY AND PHYSICAL ---
PRIMARY CARE PHYSICIAN: Ritu Henry MD CHIEF COMPLAINT: Difficulty in breathing and cough. HISTORY OF PRESENT ILLNESS: This is a 81-year-old female with multiple medical conditions, including chronic atrial fibrillation, congestive heart failure, severe COPD, hypertension who was brought to the emergency department by her daughter complaining of apparently that during the last 3 or 4 days she was having more labored breathing and she was having more cough, although she was not able to spit up anything. There was not reported any fever or chills. The daughter who is a nurse here in [facility] reports that the patient was discharged from rehab facility because of a femur fracture and after that, she was having recurrent urinary tract infections. Patient was seen in [place] [facility] and she was provided antibiotics. We do not have the results for urine cultures. Also she was recently seen for 5 days in [facility] for same problems and today apparently she is having problems with breathing, coughing. Patient is going to be admitted to the hospital for further evaluation and treatment. Here upon ER evaluation, she was found to have atrial fibrillation, but the heart reading went up to 160. Patient was given IV Cardizem and by now, the heart rate is between 90 and 100. She is not on any home oxygen. The patient is going to be admitted for further evaluation and treatment. PAST MEDICAL HISTORY: 1. COPD, not on any home oxygen. 2. Congestive heart failure with ejection fraction of 50% in January 2014. 3. Hypertension. 4. Dementia, with behavioral changes. 5. Diverticulitis. 6. Coronary artery disease, status post cardiac stent placement. PAST SURGICAL HISTORY: 1. Appendectomy. 2. Cholecystectomy. 3. Hysterectomy. 4. Tubal ligation. 5. Colon resection for treatment of diverticulitis. SOCIAL HISTORY: As per family, patient denies drinking alcohol, smoking tobacco or using illicit drugs. ALLERGIES: Patient is allergic to sulfa. Family reports that she is not allergic to penicillin because she has received Zosyn a couple of weeks ago and she did not develop any rash. She is allergic to iodine contrast dye. Also to Nubain, Pepcid and also streptomycin. REVIEW OF SYSTEMS: Not possible to obtain because of the mental status of the patient. PHYSICAL EXAMINATION: VITALS: Temperature 97.9 degrees, heart rate 94, respiratory rate 20, blood pressure 141/85, O2 saturation 96% 2 L nasal cannula. GENERAL EXAMINATION: This is a chronically ill-looking and frail 81-year-old female lying in bed, in no acute distress. HEENT: Head is normocephalic and atraumatic. Anicteric sclerae and pale conjunctivae. Mucous membranes moist. Pupils equal, round, reactive to light and accommodation. NECK: Supple. Trachea midline. No JVD noted. No carotid bruits. No lymphadenopathy. No thyromegaly. CARDIOVASCULAR: S1, S2 heard. No murmurs, gallops, or rubs. Irregularly irregular heart rhythm. PULMONARY: Decreased breath sounds globally, but there is now wheezing. No crackles noted. Patient is not using any accessory muscles or having work of breathing. ABDOMEN: Soft, apparently nontender to palpation. Bowel sounds present. No organomegaly. EXTREMITIES: No clubbing, but mild 1+ pitting edema in both lower extremities. NEUROLOGICAL: Patient is sleeping, but easily arousable. Not able to answer questions. LABORATORY DATA: White cell count 8.43, hemoglobin 13.2, hematocrit 44.7, platelets 211,000. BMP unremarkable with elevation of proBNP 29,000. ASSESSMENT: 1. Acute on chronic respiratory failure. 2. Chronic obstructive pulmonary disease exacerbation. 3. Acute on chronic congestive heart failure. 4. Chronic atrial fibrillation with rapid ventricular response. 5. Dementia. PLAN: 1. Patient is admitted to the hospital for the problems above mentioned. For atrial fibrillation with rapid ventricular response, we know that this condition is chronic, although she is not on any anticoagulation. She is on Plavix because she is allergic to aspirin apparently. Also, the patient daughter reported that she was she was not taking her Cardizem CD 180 as she was supposed to. At this time, what we are going to do is to put her on Cardizem 30 mg p.o. q.6 hours and we will see how she does. We are going to also request an echocardiogram. Also we are going to consult Cardiology to see if there is anything else that we can do for this patient. Also, for this pneumonia we are going to use vancomycin and also meropenem. Considering this history of recurrent infection, there is a possibility that this infection can be secondary to extended-spectrum beta-lactamase infection, so at this point, we are going to use meropenem 1 g q.8 hours. Also, to have a better visualization of the lung anatomy, we are going to do a CT of the chest without contrast. Of course, we are going to order urine culture to see this infection is produced by an extended-spectrum beta-lactamase bacteria or not. We are going to consult Physical Therapy because the family reported that she was developing physical deconditioning. Also, because the patient is hard to stick, we are going to order a peripherally inserted central line as well. We are going to use furosemide 40 mg IV b.i.d. for this on pulmonary edema. We will go from there. 2. Further recommendations to follow according to the clinical situation of the patient. cc: Olvin Talavera MD
[2017-02-17] MEDS ORDERED: VITAMIN D PO ONE (20:53)
[2017-02-17] MEDS ORDERED: VANCOMYCIN IV PER PHARMACY MISC SCH (20:53)
[2017-02-17] MEDS ORDERED: NS 1,000 ML IV SCH (20:53)
[2017-02-17] MEDS ORDERED: LIPITOR PO SCH (21:00)
--- NOTE | 2017-02-17 21:09 | Diag Imaging Result Document ---
PROCEDURE NAME: CT THORAX W/O CONTRAST - 02/17/2017 CT OF THE CHEST WITHOUT CONTRAST: FINDINGS: There are bilateral pleural effusions. There is considerable compressive atelectasis in the right lower lobe with some lesser degrees of atelectasis in the left lower lobe and lingula. There is COPD. There is some motion artifact. There are some granulomatous calcifications in the subcarina and left hilum and extensive coronary calcification is present. There is no evidence of significant adenopathy. There is mild anasarca. There is a right adrenal adenoma measuring 17 mm in diameter. No previous studies are available for comparison. IMPRESSION: Bilateral pleural effusions and compressive atelectasis, Particularly in the right lower lobe. COPD.
[2017-02-17] MEDS ORDERED: VANCOMYCIN 1,400 MG in NS 250 ML IV ONE (22:00)
[2017-02-17] MEDS: MERREM 1 GM in NS 50 ML IV SCH (22:20)
[2017-02-17] MEDS: LOVENOX SUBQ SCH (22:20)
[2017-02-17] MEDS: CARDIZEM PO SCH (22:20)
[2017-02-17] MEDS: LASIX IV SCH (22:20)
[2017-02-17 22:54] LABS: URINE CULTURE NEEDED? NO; URINE MICRO REVIEW NEEDED? NO; URINE SOURCE CATH
[2017-02-17 23:12] LABS: BILIRUBIN URINE NEGATIVE (NEGATIVE); COLOR YELLOW; GLUCOSE URINE NEGATIVE (NEGATIVE); TURBIDITY URINE CLEAR (CLEAR); UR EPITHELIAL CELLS <10 /HPF (<10); URINE BACTERIA NEGATIVE /HPF; URINE RBC <10 /HPF (<10); URINE WBC <10 /HPF (<10)
[2017-02-17 23:13] LABS: BLOOD URINE SMALL (NEGATIVE); LEUKOCYTES URINE NEGATIVE (NEGATIVE); NITRITE URINE NEGATIVE (NEGATIVE); PROTEIN URINE 30 mg/dL (NEGATIVE); UROBILINOGEN URINE NORMAL (NORMAL)
[2017-02-18] MEDS: CARDIZEM PO SCH ×4 (03:00→22:26)
[2017-02-18 05:05] LABS: MANUAL DIFF NEEDED? NO
[2017-02-18 05:06] LABS: BASO% 0.1 % (0.0-0.8); EOS# 0.09 X1000 (0.0-0.7); EOS% 1.2 % (0.0-10.0); HEMATOCRIT 41.9 % (37.0-47.0); HEMOGLOBIN 12.6 g/dL (12.0-16.0); LYMPH# 1.18 X1000 (1.2-3.4); MCH 30.1 PG (27-31); MCHC 30.1 g/dL (33-37); MCV 100.2 FL (81-99); MONO# 0.67 X1000 (0.11-0.59); MONO% 9.1 % (1.7-9.3); MPV 11.7 FL (7.4-10.4); NEUT% 73.6 % (42.2-75.2); PLT 173 X1000 (130-400); RBC 4.18 XMIL (4.2-5.4)
[2017-02-18 05:15] LABS: INR 1.08; PROTIME 11.4 Seconds (9.2-11.7); PTT 30.3 Seconds (22.0-36.0)
[2017-02-18 05:30] LABS: AGAP 10; BUN 18 mg/dL (8-22); CALCIUM 8.7 mg/dL (8.8-10.2); CHLORIDE 101 mmol/L (98-107); COSMO 290; POTASSIUM 3.8 mmol/L (3.5-5.1); SODIUM 145 mmol/L (136-145); TCO2 34 mmol/L (25-35)
[2017-02-18] MEDS: MERREM 1 GM in NS 50 ML IV SCH ×3 (05:50→23:07)
[2017-02-18] MEDS: IMDUR PO SCH (10:24)
[2017-02-18] MEDS: TAPAZOLE PO SCH (10:25)
[2017-02-18] MEDS: LASIX IV SCH ×2 (10:25→22:26)
[2017-02-18] MEDS: LIPITOR PO SCH (10:25)
[2017-02-18] MEDS: PLAVIX PO SCH (10:25)
[2017-02-18] MEDS: LOPRESSOR PO SCH ×2 (10:28→22:32)
[2017-02-18] MEDS ORDERED: NS 250 ML ONE (11:47)
--- NOTE | 2017-02-18 12:36 | CONSULTATION ---
DATE OF CONSULTATION: 02/18/2017 IMPRESSION: 1. Acute on chronic congestive heart failure. 2. Atrial fibrillation with elevated ventricular rate despite current therapy. 3. Significant dementia. 4. Questionable nutritional status, possible failure to thrive. 5. Significant chronic obstructive pulmonary disease. 6. Atherosclerotic coronary disease with history of previous angioplasty/stenting of left anterior descending coronary in February of 2014 with a drug-eluting stent. 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 7. Hyperthyroidism. RECOMMENDATIONS: 1. Discontinue intravenous fluids and diurese cautiously. 2. Add low-dose metoprolol to try and improve heart rate control. 3. Echocardiography. 4. Conservative cardiovascular plans overall. HISTORY: This 81-year-old, white female with a past history of atherosclerotic coronary disease as outlined above, COPD, chronic atrial fibrillation, hyperthyroidism, and dementia was admitted for further management of congestive heart failure and atrial fibrillation. She is a poor historian due to her dementia and family is not presently available. She really cannot recall her symptoms. She presented with dyspnea symptoms but no chest pain. She was found to be in atrial fibrillation with elevated heart rate. She was also found to have clinical manifestations of congestive heart failure. PAST MEDICAL HISTORY: 1. Atherosclerotic coronary disease as outlined above. 2. Atrial fibrillation, chronic. Patient not felt to be a candidate for anticoagulation. 3. Atherosclerotic carotid disease. 4. Significant COPD. 5. Hyperthyroidism. 6. History of previous poor nutritional status. 7. Significant dementia. PAST SURGICAL HISTORY: 1. Appendectomy. 2. Cholecystectomy. 3. Surgical intervention for small bowel obstruction. 4. Hysterectomy. ALLERGIC: She is allergic or intolerant to penicillin, sulfa, aspirin, and Pepcid. MEDICATIONS PRIOR TO ADMISSION: As listed. SOCIAL HISTORY: She continues to live at home. She has a long history of chronic cigarette use, smoking 2 packs per day for many years. She does not use alcohol. FAMILY HISTORY: Negative for premature coronary disease. REVIEW OF SYSTEMS: Not reliably obtainable given patient's significant dementia. PHYSICAL EXAMINATION: General: This is an elderly, white female, in no distress. Vital Signs: Blood pressure 131/65, heart rate 87 and irregular. HEENT Examination: Extraocular movements intact. Mucous membranes are moist. Dentition is poor. Neck: Supple. JV pressure appears to be mildly elevated. Chest: Auscultation of the chest reveals diminished breath sounds at the bases bilaterally. Cardiac Examination: Was an irregular rate and rhythm without appreciable murmur or gallop. Abdomen: Soft, nontender. Bowel sounds are normal. Extremities: Demonstrate 1+ to 2+ pitting edema with distal lower extremities cool to palpation. Neurologic Examination: Reveals her to be awake but confused. She moves all 4 extremities equally well. Skin: Warm and dry. DIAGNOSTIC DATA: ECG shows atrial fibrillation with ventricular response 116 beats per minute and nonspecific T-wave abnormality. LAB DATA: Includes a BUN of 18, creatinine 0.7. B-type natriuretic peptide level 29,135. Troponin less than 0.01. Chest x-ray reports bilateral pleural effusions and left lobe infiltrate. White blood cell count 7.37, hematocrit 41.9. cc: Eduardo Goncalves MD
--- NOTE | 2017-02-18 13:39 | Diag Imaging Result Document ---
PROCEDURE NAME: CHEST-PORTABLE - 02/18/2017 SINGLE FRONTAL RADIOGRAPH OF THE CHEST: COMPARISON: 02/17/2017. FINDINGS: There is a newly placed left PICC line. The tip projects over the region of the atriocaval junction in the expected position. The bilateral pleural effusions at the bases and the bibasilar infiltrates have improved during the interval. No new consolidation is identified. There is stable cardiomegaly. IMPRESSION: 1. Interval placement of left PICC line in the expected position as described. 2. Interval improvement of small bibasilar effusions with adjacent infiltrates.
--- NOTE | 2017-02-18 15:38 | PROGRESS NOTE ---
DATE: 02/18/2017 SUBJECTIVE: The patient is complaining of pain all over. Not able to maintain a good conversation with her. OBJECTIVE: Vital Signs: Temperature 97.6 degrees, heart rate 87, respiratory rate 21, blood pressure 114/46, O2 saturation 97% on 2 L nasal cannula. General Examination: This is a chronically ill-looking, very frail 81-year-old female lying in bed, in no acute distress. HEENT: Head is normocephalic, atraumatic. Anicteric sclerae and pale conjunctivae. Mucous membranes moist. Neck: Supple. No jugular venous distention noted. No carotid bruits. No lymphadenopathy. No thyromegaly. Cardiovascular Examination: S1 and S2 heard. No murmurs, gallops, or rubs. Irregularly irregular heart rhythm. Pulmonary Examination: Decreased breath sounds globally with some crackles in both bases, but mild. The patient is not using any accessory muscles or having work of breathing. Abdomen: Soft, nontender to palpation. Bowel sounds present. No organomegaly. Neurological Examination: Patient is sleepy. Moves all 4 extremities. Does follow commands. LABORATORY DATA: White blood count 7.27, hemoglobin 12.6, hematocrit 41.9, platelets 173,000. BMP unremarkable. ASSESSMENT AND PLAN: 1. Acute on chronic congestive heart failure. 2. Chronic atrial fibrillation with rapid ventricular response. 3. Chronic obstructive pulmonary disease exacerbation. 4. Dementia. 5. Coronary artery disease, status post stenting. 6. Hyperthyroidism. Patient was admitted to the hospital for cough for the last 4 days and apparently she was not bringing up any phlegm and no fever reported. She was started on antibiotics for possible infection. The reason why she has crackles mimicking that this patient has volume overload, so we have stopped the IV fluids and start diuresis cautiously. Cardiology was consulted because of the time that she was seen in the ER she was found atrial fibrillation with rapid ventricular rate. At this point, we will continue with the same management. For chronic obstructive pulmonary disease, we are going to continue with nebulizations with DuoNeb every 4 hours. 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 For dementia, Seroquel has been added to her current treatment to be given at night to avoid any delirium. Further recommendations to follow according to the clinical situation with the patient. The patient was basically admitted to hospital for cough, difficulty breathing, and she was found on chronic atrial fibrillation with rapid ventricular response. We will continue following recommendations from Cardiology. cc: Olvin Talavera MD
[2017-02-18] MEDS: SEROQUEL PO SCH (22:26)
[2017-02-18] MEDS: LOVENOX SUBQ SCH (23:06)
[2017-02-19] MEDS: CARDIZEM PO SCH ×4 (04:47→22:17)
[2017-02-19 05:04] LABS: MANUAL DIFF NEEDED? NO
[2017-02-19 05:07] LABS: EOS# 0.26 X1000 (0.0-0.7); EOS% 3.8 % (0.0-10.0); HEMATOCRIT 38.6 % (37.0-47.0); HEMOGLOBIN 11.5 g/dL (12.0-16.0); IMM GRAN# 0.02 X1000 (0.0-0.04); IMM GRAN% 0.3 % (0.0-0.5); LYMPH# 1.11 X1000 (1.2-3.4); LYMPH% 16.4 % (20.5-51.1); MCH 29.8 PG (27-31); MCHC 29.8 g/dL (33-37); MONO# 0.61 X1000 (0.11-0.59); MPV 11.3 FL (7.4-10.4); NEUT% 70.5 % (42.2-75.2); PLT 174 X1000 (130-400); RBC 3.86 XMIL (4.2-5.4)
[2017-02-19 05:25] LABS: AGAP 7; BUN 20 mg/dL (8-22); CALCIUM 8.8 mg/dL (8.8-10.2); CHLORIDE 99 mmol/L (98-107); COSMO 293; POTASSIUM 3.4 mmol/L (3.5-5.1); SODIUM 145 mmol/L (136-145); TCO2 39 mmol/L (25-35)
[2017-02-19] MEDS: MERREM 1 GM in NS 50 ML IV SCH (06:03)
[2017-02-19] MEDS: TAPAZOLE PO SCH (08:30)
[2017-02-19] MEDS: PLAVIX PO SCH (08:30)
[2017-02-19] MEDS: IMDUR PO SCH (08:31)
[2017-02-19] MEDS: LASIX IV SCH (08:31)
[2017-02-19] MEDS: LOPRESSOR PO SCH ×2 (08:31→22:16)
[2017-02-19] MEDS: LIPITOR PO SCH (08:31)
[2017-02-19] MEDS: DILAUDID IV PRN ×3 (08:34→23:33)
[2017-02-19] MEDS ORDERED: POTASSIUM CHLORIDE 40 MEQ/SWI 40 MEQ/100 ML IVPB IV ONE (08:42)
[2017-02-19] MEDS ORDERED: VANCOMYCIN 1 GM/NS 1 GM/250 ML IVPB IV SCH (10:00)
--- NOTE | 2017-02-19 11:18 | ECHO REPORT ---
ORDER DATE: 02/17/2017 INDICATION: 1. Atrial fibrillation. 2. Chronic obstructive pulmonary disease. 3. Congestive heart failure. FINDINGS: 1. Right atrium is mildly enlarged at 4.5 cm. 2. Mild tricuspid regurgitation. RV systolic pressure of 40. 3. There does appear to be mild reduction in RV systolic function with mild enlargement of the right ventricle. 4. No significant pulmonic insufficiency. 5. Mild left atrial enlargement at 4.9 cm. 6. No mitral prolapse. Mild mitral regurgitation. 7. Left ventricle appears to be normal in size with borderline mild left ventricular hypertrophy. End-diastolic volume is 5.8. Posterior and interventricular septal wall thicknesses are 1.1 and 1.2 cm, respectively. The LV systolic function does appear to be reduced. Estimated ejection fraction is around 35-40%. There does appear to be some focal hypokinesis in some views in the more basilar portions of the inferior wall. 8. Aortic valve is somewhat calcified, but appears to open well. There is mild aortic insufficiency with no evidence of stenosis. 9. Aorta appears normal in visualized segments. 10. No pericardial effusion seen. cc: MD Olvin Diamond MD
--- NOTE | 2017-02-19 11:25 | PROGRESS NOTE ---
DATE: 02/19/2017 SUBJECTIVE: This patient looks better today. She is not complaining of shortness of breath. She is not coughing. She has a baseline dementia as per family members at the bedside. She does not have fever or chills. No cough. This patient presented also with atrial fibrillation RVR, that is rate controlled at this moment. I will transfer this patient to the floor with telemetry. OBJECTIVE: Vital Signs: Temperature 97.5, pulse 94, respiratory rate 19, blood pressure 104/50, oxygen saturation 100% on 2 L of nasal cannula. HEENT: Head normocephalic. No trauma. PERRLA. Neck: Supple. No JVD. No masses. Central trachea. Chest: Decreased breath sounds globally. Prolonged expiratory phase. Mild rales at the bases. No wheezing. Cardiovascular: Irregularly irregular rate and rhythm. No murmurs. Abdomen: Soft, nontender, nondistended. No hepatosplenomegaly. Extremities: 2+ lower extremity edema. No clubbing. No cyanosis. Neurological: The patient is alert. She is oriented x2. She is not oriented in time, she has a baseline dementia. She follows commands and she moves all 4 extremities. LABORATORY: WBC 6.7, hemoglobin 11.5, hematocrit 38.6. Platelets 174,000, sodium 145. Potassium 3.4, chloride 99, bicarbonate 39, BUN 20, creatinine 0.8, glucose 127, calcium 8.8. ASSESSMENT AND PLAN: 1. Acute on chronic congestive heart failure, Cardiology Department is on board. I will decrease the dose of Lasix from 40 IV b.i.d. to 40 p.o. daily, and I will continue monitoring this patient on the medical floor. She is getting better. 2. Chronic atrial fibrillation with RVR. The rate is controlled at this moment. We will continue with the same management. 3. Chronic obstructive pulmonary disease exacerbation. This patient is getting better. I will continue with the same management for now. We had a CT scan done that did not show any infiltrates suggestive of pneumonia, so I will stop the antibiotics. The white blood cells are normal. She is not complaining of fever or chills. There are no records of fever chills either, and no infiltrates on the CT scan. 4. Dementia, apparently this is her baseline. 5. Coronary artery disease status post stenting. Will continue with Plavix. 6. Hyperthyroidism. Continue with home medication. Even though this patient has atrial fibrillation, she is not on warfarin or any new anticoagulation, probably because she is high risk of falling. Also, as per the previous notes, she is not very good at taking her medications as prescribed. cc: Nithin Restrepo MD
[2017-02-19] MEDS: LASIX PO SCH (12:57)
--- NOTE | 2017-02-19 16:34 | PALLIATIVE CARE CONSULTATION ---
DATE: 02/19/2017 REQUESTING PHYSICIAN: ARABELLA Apple. REASON FOR CONSULTATION: Goals of care. HISTORY OF PRESENT ILLNESS: This is a 81-year-old, female with a past medical history of COPD, congestive heart failure, hypertension, dementia with behavioral changes, diverticulitis and coronary artery disease. She was most recently admitted on 02/17/2017 after presenting to the emergency department with complaints of progressive shortness of breath, cough and weakness. Ms. Orlando's daughter is at the bedside and states that since experiencing a fractured femur in October 2016, Ms. Orlando has had an overall decline. She has had roughly a 20 pound weight loss since October of last year. She has had a functional decline and has become more withdrawn. Her daughter states that she will sleep 20 out of 24 hours per day. She has frequent episodes of agitation and is requiring 24-hour caregivers while at home. Currently, Ms. Orlando is sitting up in the bed. She does have her breakfast in front of her, but states that she is not hungry. She will drift off to sleep when not stimulated. Does not appear to be uncomfortable. She is alert to person and place only. The palliative care team has been consulted to assist with goals of care. REVIEW OF SYSTEMS: Unable to review. PAST MEDICAL HISTORY: See HPI. PAST SURGICAL HISTORY: 1. Appendectomy. 2. Cholecystectomy. 3. Hysterectomy. 4. Tubal ligation. 5. Colon resection. SOCIAL HISTORY: Prior to this admission she was living with her granddaughter, who hired private duty sitters. Alcohol, tobacco and drug use have been denied. She is a . FAMILY HISTORY: None pertinent. PHYSICAL EXAM: General: This is a chronically ill-appearing, cachectic 81-year-old female, who does not appear to be in any acute distress. HEENT: Atraumatic, normocephalic. Neck: Trachea is midline. Cardiovascular: Irregularly irregular rhythm. Pulmonary: Lung sounds are diminished. Respirations are nonlabored. Abdomen: Soft. Bowel sounds are active. Extremities: Pulses are palpable. Skin: Warm and dry. Neurologic: She appears sleepy, but will arouse to tactile and verbal stimulation. She is only oriented to person and place. IMPRESSION: This is a 81-year-old, female with a past medical history as listed above in the HPI. I met with the patient and her daughter Layla Hill to discuss Ms. Orlando goals of care. Ms. Orlando is a DNR level 1. Layla Hill is her power of crop grain or livestock farm manager. As previously mentioned, Ms. Hill explains that Ms. rOlando has shown an overall decline since fracturing her right femur in October of last year. Ms. Hill states that it is becoming more and more difficult to staff 24 hour sitters while in the home and her hopes are that Ms. Orlando is able to discharge to a long-term care facility. As previously mentioned, Ms. Orlando has not complained of any acute symptoms at this time. I did discuss disease progression and decline with Ms. Orlando's daughter and answered her questions. It appears that Ms. Orlando's palliative performance scale is 30%. She is a DNR level 1. The palliative care team will continue to follow. Thank you for this consultation. Dictated by ARABELLA Ko for Robin Whitley MD cc: ARABELLA Ko MD
--- NOTE | 2017-02-19 19:46 | PROGRESS NOTE ---
DATE: 02/19/2017 SUBJECTIVE: Patient denies shortness of breath or chest discomfort. She appears more comfortable today. OBJECTIVE: Vital Signs: Blood pressure 91/53, heart rate 54. Neck: Supple. Mild elevation in central venous pressure suggested on inspection of neck veins. Chest: Clear to auscultation. Cardiac Examination: Reveals an irregular rate and rhythm without appreciable gallop. There is no evidence of peripheral edema. Extremities: Demonstrate mild pretibial edema bilaterally. LAB DATA: BUN 20, creatinine 0.8. IMPRESSION: 1. Acute on chronic congestive heart failure. Patient clinically improving with diuresis. 2. Atrial fibrillation. Heart rate is now recently controlled. Patient felt to be a poor candidate for anticoagulation. 3. Chronic obstructive pulmonary disease. 4. Significant dementia. 5. Coronary artery disease with history of previous angioplasty with stenting. RECOMMENDATIONS: 1. Continue gentle diuresis. 2. Conservative cardiovascular plan overall. 3. Agree with evaluation for palliative care. 4. We will see further on as needed basis. cc: Eduardo Goncalves MD
[2017-02-19] MEDS: LOVENOX SUBQ SCH (22:15)
[2017-02-19] MEDS: SEROQUEL PO SCH (22:17)
[2017-02-20] MEDS: DILAUDID IV PRN ×2 (02:10→04:52)
[2017-02-20] MEDS: CARDIZEM PO SCH ×5 (02:13→21:45)
[2017-02-20 07:10] LABS: MANUAL DIFF NEEDED? NO
[2017-02-20 07:13] LABS: BASO% 0.2 % (0.0-0.8); EOS% 5.5 % (0.0-10.0); HEMATOCRIT 35.7 % (37.0-47.0); HEMOGLOBIN 10.4 g/dL (12.0-16.0); LYMPH# 1.46 X1000 (1.2-3.4); LYMPH% 26.9 % (20.5-51.1); MCH 29.5 PG (27-31); MCHC 29.1 g/dL (33-37); MCV 101.1 FL (81-99); MONO# 0.46 X1000 (0.11-0.59); MONO% 8.5 % (1.7-9.3); MPV 11.3 FL (7.4-10.4); NEUT% 58.9 % (42.2-75.2); PLT 146 X1000 (130-400); RBC 3.53 XMIL (4.2-5.4)
[2017-02-20 07:40] LABS: AGAP 7; BUN 18 mg/dL (8-22); CALCIUM 8.7 mg/dL (8.8-10.2); CHLORIDE 96 mmol/L (98-107); COSMO 281; POTASSIUM 3.7 mmol/L (3.5-5.1); SODIUM 140 mmol/L (136-145); TCO2 37 mmol/L (25-35)
--- NOTE | 2017-02-20 07:45 | Diag Imaging Result Document ---
PROCEDURE NAME: CHEST-1 VIEW - 02/20/2017 SINGLE FRONTAL RADIOGRAPH OF THE CHEST: COMPARISON: 02/18/2017. FINDINGS: Left PICC line is stable. There is mild blunting of the left costophrenic angle suggesting a trace effusion. Mild bilateral infiltrates suggesting mild edema are essentially stable. No new consolidation is identified, otherwise. Cardiac silhouette is stable. IMPRESSION: Development of a trace left effusion. Essentially stable, otherwise.
[2017-02-20] MEDS: LOPRESSOR PO SCH ×2 (09:42→21:45)
[2017-02-20] MEDS: LIPITOR PO SCH (09:42)
[2017-02-20] MEDS: PLAVIX PO SCH (09:42)
[2017-02-20] MEDS: TAPAZOLE PO SCH (09:42)
[2017-02-20] MEDS: LASIX PO SCH (09:43)
[2017-02-20] MEDS: IMDUR PO SCH (09:43)
--- NOTE | 2017-02-20 17:02 | PROGRESS NOTE ---
DATE: 02/20/2017 SUBJECTIVE: When I evaluated this patient in the morning, this patient was somnolent, so I stopped all the pain medication and also the Seroquel, and I re-evaluated this patient in the afternoon again. In the afternoon, she was more awake and she was asking for food and answered all my questions properly, and also she was following commands. So for now, I will continue her treatment without any kind of pain medication/narcotics and Seroquel. OBJECTIVE: Vital Signs: Temperature 98.1 degrees, pulse 99, respiratory rate 20, blood pressure 127/77, oxygen saturation 91 on nasal cannula. HEENT: Head normocephalic. No trauma. PERRLA. Neck: Supple. No JVD. No masses. Central trachea. Chest: Decreased breath sounds globally. Prolonged expiratory phase. Mild rales at the bases. No wheezing. Cardiovascular: Irregularly irregular rate and rhythm. No murmurs. Abdomen: Soft, nontender, nondistended. No hepatosplenomegaly. Extremities: 2+ lower extremity edema. No clubbing. No cyanosis. Neurological: The patient is alert, she is oriented x2. She is not oriented in time. She has a baseline dementia. She is following commands. She is moving all 4 extremities. She does not have any focal neurological deficits. LABORATORY: WBC 5.4, hemoglobin 10.4, hematocrit 35.7. Sodium 140, potassium 3.7, chloride 96, bicarbonate 37, BUN 18, creatinine 0.7, glucose 85, calcium 8.7. Vitamin B12 1090. Folate is 4.6. ASSESSMENT AND PLAN: 1. Acute on chronic congestive heart failure, Cardiology Department is on board. I will continue with gentle diuresis, she is getting Lasix 40 p.o. daily. I will continue monitoring this patient on the medical floor. She is getting better. 2. Chronic atrial fibrillation with rapid ventricular response, rate controlled at this moment. We will continue with the same management. 3. Chronic obstructive pulmonary disease exacerbation. She is getting better. I will continue with the same management for now. We had a computed tomography scan done that did not show any infiltrates suggestive of pneumonia. I already stopped the antibiotics. The white blood cells are normal. She is not complaining of fever or chills. There are no records of high temperature either. 4. Folate deficiency. I will start this patient on folic acid. 5. Dementia. Apparently this condition is chronic, stable. 6. Coronary artery disease, status post stenting. Continue with Plavix. 7. Hyperthyroidism. Continue with home medication. Even though this patient has atrial fibrillation, she is not on warfarin or any new why anticoagulation, probably because of her high risk of falling and/or medication compliance. roll scale worker is trying to get a long-term care for this patient. cc: Nithin Restrepo MD
[2017-02-20] MEDS: LOVENOX SUBQ SCH (21:45)
[2017-02-21] MEDS: CARDIZEM PO SCH ×3 (05:16→15:19)
[2017-02-21 06:27] LABS: MANUAL DIFF NEEDED? NO
[2017-02-21 06:45] LABS: EOS# 0.35 X1000 (0.0-0.7); EOS% 7.1 % (0.0-10.0); HEMATOCRIT 36.6 % (37.0-47.0); HEMOGLOBIN 11.2 g/dL (12.0-16.0); LYMPH# 1.04 X1000 (1.2-3.4); MCH 30.1 PG (27-31); MCHC 30.6 g/dL (33-37); MCV 98.4 FL (81-99); MONO# 0.37 X1000 (0.11-0.59); MONO% 7.5 % (1.7-9.3); MPV 11.4 FL (7.4-10.4); NEUT% 64.4 % (42.2-75.2); PLT 140 X1000 (130-400); RBC 3.72 XMIL (4.2-5.4)
[2017-02-21 06:51] LABS: AGAP 7; BUN 16 mg/dL (8-22); CALCIUM 8.7 mg/dL (8.8-10.2); CHLORIDE 97 mmol/L (98-107); COSMO 284; POTASSIUM 3.6 mmol/L (3.5-5.1); SODIUM 143 mmol/L (136-145); TCO2 39 mmol/L (25-35)
[2017-02-21 07:48] VITALS: BP 142/85
[2017-02-21] MEDS ORDERED: FOLIC ACID PO SCH (09:00)
[2017-02-21] MEDS: LASIX PO SCH (09:55)
[2017-02-21] MEDS: IMDUR PO SCH (09:55)
[2017-02-21] MEDS: LOPRESSOR PO SCH (09:55)
[2017-02-21] MEDS: PLAVIX PO SCH (09:55)
[2017-02-21] MEDS: TAPAZOLE PO SCH (09:55)
[2017-02-21] MEDS: LIPITOR PO SCH (09:55)
--- NOTE | 2017-02-21 14:09 | DISCHARGE SUMMARY ---
ADMISSION DATE: 02/17/2017 DISCHARGE DATE: 02/21/2017 CONSULTATIONS: 1. Dr. Eduardo Goncalves with Cardiology. 2. ARABELLA Ko with Palliative Care. PERTINENT PROCEDURES: 1. Chest CT showed bilateral pleural effusions and compressive atelectasis, particularly in the right lower lobe. COPD. 2. Echocardiogram showed an EF of 30-35% with focal hypokinesis in basilar portions of the inferior wall. DISCHARGE DIAGNOSES: 1. Acute on chronic congestive heart failure improved. 2. Chronic atrial fibrillation with rapid ventricular response, rate controlled. Continue with current management. 3. Chronic obstructive pulmonary disease exacerbation, improving. 4. Folate deficiency. Continue with folic acid. 5. Dementia, chronic. Stable. 6. Coronary artery disease status post stenting. Continue Plavix. 7. Hypothyroidism. Continue with home medications. HOSPITAL COURSE: Briefly, Ms Orlando is a 81-year-old, female with past medical history of COPD, congestive heart failure, hypertension, dementia with behavioral changes, diverticulitis, coronary artery disease. Her most recent admission was on 02/17/2017 after presenting to the ED with complaints of shortness of breath, cough and weakness. She also suffered a fractured femur in October 2016 and since that time Ms Orlando has had an overall decline. She has had a 20-pound weight loss since her femur fracture in October as well as functional decline and has become more withdrawn. Per the daughter she will sleep 20-24 hours per day with frequent episodes of agitation, requiring 24-hour caregiver while at home. The patient was admitted for acute on chronic respiratory failure as well as COPD exacerbation and acute on chronic congestive heart failure and atrial fibrillation with RVR. The patient's Cardizem was changed from CD to Cardizem 30 mg p.o. q.6 hours as well as a cardiology consult. For her pneumonia they also placed her on vancomycin as well as meropenem as well as IV Lasix for her pulmonary edema, and a physical therapy consult as well as palliative care. She was continued on bronchodilators as well as aggressive pulmonary toilet. Seroquel has been added for her dementia. Her Lasix was changed from IV to p.o. Her rate was controlled for her atrial fibrillation. Her white counts have remained normal. Her antibiotics were stopped. There was no fever or chills. Pneumonia was ruled out radiographically. Patient has not been complaining of any more shortness of breath. The patient is at her baseline with dementia per family members. Palliative Care spoke with the patient as well as the patient's daughter. Ms Orlando was a DNR level 1. Her daughter, Layla Navarro, does have [id number] and due to her overall decline since fracturing her femur in October 2016, it was becoming more difficult to staff 24-hour sitters while in the home, so they requested discharge to a long-term care facility. The patient is being discharged today to [facility] in [place]. VITAL SIGNS AT TIME OF DISCHARGE: Temperature is 97.4 degrees, heart rate 98, respirations 22, blood pressure 142/85. O2 sat is 98% on 2 L nasal cannula. DISCHARGE DIET: Mechanical soft with chopped meats with Ensure. DISCHARGE MEDICATIONS: As per Dr. Naik. Please see MAR. FOLLOW-UP: Patient is being discharged to [facility] for long-term placement. Patient can return to the ED for any worsening symptoms. DISCHARGE TIME: Thirty minutes. Dictated by ARABELLA Apple for iNthin Restrepo MD cc: MD Ritu Oshea MD
== END 2017-02-21 15:20 ==
LOC: ED 15:20 → SUATTDRO 20:13 → 3S 20:13 → 4N 02-19 12:33
PROVIDERS: ATTEND Internal Medicine